=== PATIENT | female | born 1965 | race Caucasian/White ===

== ENCOUNTER 2019-10-10 14:50 | Outpatient (CLI) | payer OTHER, SELFPAY ==
--- NOTE | 2019-10-10 15:07 | CT_ITS ---
WS: [id number] CT of the lumbar spine, additional two-dimensional coronal and sagittal imaging was obtained. 10/10/19 Clinical Data: RADICULAR NEUROPATHY Comparison: None. DLP: 2393.[address] scans at [facility] use at least one of these dose optimization techniques: automat ed exposure control; mA and/or kV adjustment per patient size (includes targeted exams where dose is matched to clinical indication); or iterative reconstruction. Findings: No compression fractures are seen. The disc heights are normal. There is a 0.3 cm anterior subluxation of L4 on L5. Transverse processes and SI joints are unremarkable. T12-L1: No canal stenosis, disc bulge or foraminal narrowing is seen. L1-L2: No canal stenosis, disc bulge or foraminal narrowing is seen. L2-L3: There is central disc bulging causing mild canal stenosis and foraminal stenosis. L3-L4: There is a minimal central disc bulge causing foraminal and central canal stenosis. L4-L5: There is a prominent central disc bulge and facet joint arthritis causing canal and foraminal stenosis. L5-S1: Is a minimal central disc bulge with facet joint arthritis causing mild foraminal and canal st enosis. CT/CT lumbar spine wo con* [id number] Impression: 1. Small anterior subluxation of 0.3 cm of L4 on L5. 2. Multilevel canal and foraminal stenosis because of disc bulging and facet adrián int arthritis from L2-L3 through L5-S1.
== END 2019-10-10 14:51 | disposition home or self-care (01) ==
LOC: RAD 15:02
PROVIDERS: Family Provider Family Medicine; PCP Family Medicine; Visit Provider Family Medicine
DX: M54.10 Radiculopathy, site unspecified (principal); M48.061 Spinal stenosis, lumbar region without neurogenic claudication; M48.07 Spinal stenosis, lumbosacral region; M43.5X6 Other recurrent vertebral dislocation, lumbar region
CPT/HCPCS: 72131

== ENCOUNTER 2020-02-14 16:28 | Outpatient (CLI) | payer OTHER, SELFPAY ==
--- NOTE | 2020-02-14 | XR_ITS ---
WS: [id number] XR lumbar spine f/e only [id number] REASON FOR EXAM: SPONDYLOLITHESIS FINDINGS: Grade 1 spondylolisthesis L4-L5. There is decrease size of the L5-S1 disc space suggesting degenerated disc changes. Chin extension views show no change in the spondylolisthesis L4-5. XR/XR lumbar spine f/e only [id number] IMPRESSION: Grade 1 spondylolisthesis L4-5 Flexion extension views show no change in this area.
== END 2020-02-14 16:29 | disposition home or self-care (01) ==
LOC: RAD 16:31
PROVIDERS: PCP Family Medicine; Visit Provider Nurse Practitioner
DX: M43.16 Spondylolisthesis, lumbar region (principal)
CPT/HCPCS: 72120

== ENCOUNTER 2021-10-09 16:00 | Outpatient (CLI) | payer OTHER, SELFPAY | END 2021-10-09 16:01 | disposition home or self-care (01) | LOC: SLEEP 10-13 13:15 | PROVIDERS: PCP Family Medicine; Visit Provider Family Medicine | DX: G47.10 Hypersomnia, unspecified (principal) | CPT/HCPCS: G0399 ==